=== PATIENT | male | born 1995 | race Caucasian/White ===

== ENCOUNTER 2016-05-17 14:10 | Emergency (ER) | payer OTHER ==
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
[2016-05-17 17:25] VITALS: BP 117/54
== END 2016-05-17 17:15 | disposition home or self-care (01) ==
LOC: ER 14:10
PROC: 0H9GXZZ Drainage of Left Hand Skin, External Approach (ICD-10-PCS; principal; 2016-05-17)
DX: S80.11XA Contusion of right lower leg, initial encounter (principal); S60.423A Blister (nonthermal) of left middle finger, initial encounter; V49.40XA Driver injured in collision with unspecified motor vehicles in traffic accident, initial encounter
CPT/HCPCS: 99283